=== PATIENT | female | born 1985 | race Hispanic/Latino ===

== ENCOUNTER 2024-06-02 18:00 | Inpatient (IN) | payer MEDICAID, OTHER, SELFPAY ==
[2024-06-02] MEDS ORDERED: Ibuprofen 800 MG TAB PO PRN (18:41)
[2024-06-02] MEDS ORDERED: Methylergonovine 0.2 MG/ML VIAL IM PRN (18:41)
[2024-06-02] MEDS ORDERED: hydrALAZINE 20 MG/ML VIAL SLOW IVP PRN (18:41)
[2024-06-02] MEDS ORDERED: Acetaminophen 500 MG TAB PO PRN (18:41)
[2024-06-02] MEDS ORDERED: Tranexamic Acid 1,000 MG/10 ML VIAL IVP PRN (18:41)
[2024-06-02] MEDS ORDERED: Promethazine HCl 25 MG/ML VIAL IM PRN (18:41)
[2024-06-02] MEDS ORDERED: Lidocaine 1% (PF) 30 ML VIAL SC PRN (18:41)
[2024-06-02] MEDS ORDERED: Docusate 100 MG CAP PO PRN (18:41)
[2024-06-02] MEDS ORDERED: Misoprostol 200 MCG TAB PR PRN (18:41)
[2024-06-02] MEDS ORDERED: Carboprost 250 MCG/ML AMP IM PRN (18:41)
[2024-06-02] MEDS: Lactated Ringer's 1,000 ML IV SCH (19:20)
[2024-06-02 19:32] LABS: Hematocrit 35.1 % (34.9-44.5); Hemoglobin 12.6 g/dL (12.0-15.5); Mean Corpuscular HGB CONC 35.9 g/dL (32.0-36.0); Mean Corpuscular Hemoglobin 35.6 pg (27.0-33.0); Mean Corpuscular Volume 99.2 fL (81.6-98.3); Mean Platelet Volume 11.8 fL (7.4-10.4); Platelet Count 169 10x3/uL (150-450); RBC Distribution Width 12.7 % (11.5-14.5); Red Blood Cell (RBC) Count 3.54 10x6/uL (3.90-5.03)
[2024-06-02 19:44] VITALS: BMI 31.1
[2024-06-02 20:29] LABS: HBsAg Index 0.15 S/CO (0-0.99); Hep B Surf Ag - L&D Non-Reactive S/CO (NonReactive)
[2024-06-02 20:33] LABS: Syphilis Antibody Nonreactive (Nonreactive); Syphilis Antibody Index 0.13 S/CO (<1.00 Non-Reactive)
[2024-06-02] MEDS: Misoprostol 100 MCG TAB VAG SCH (20:59)
[2024-06-02] MEDS ORDERED: Oxytocin 30 units/NS 500 ML 500 ML IV SCH (21:00)
[2024-06-03] MEDS: Penicillin G Potassium 5 MILL.UNITS in Sodium Chloride 0.9% 100 ML IVPB SCH (00:50)
[2024-06-03] MEDS ORDERED: Lidocaine 1% (PF) 30 ML VIAL SC PRN (01:08)
[2024-06-03] MEDS: Oxytocin 30 units/NS 500 ML 500 ML IV SCH (01:27)
[2024-06-03] MEDS: Penicillin G 2.5 MILL.units 2.5 MILL.UNITS in Premix 1 BAG IVPB SCH (05:06)
[2024-06-03] MEDS ORDERED: Lactated Ringer's 500 ML IV PRN (05:29)
[2024-06-03] MEDS ORDERED: ePHEDrine Sulfate 50 MG/10 ML VIAL SLOW IVP PRN (05:29)
[2024-06-03] MEDS ORDERED: Ondansetron PF 4 MG/2 ML Vial IVP PRN (05:29)
[2024-06-03] MEDS ORDERED: Promethazine HCl 25 MG/ML VIAL IM PRN (05:29)
[2024-06-03] MEDS ORDERED: Naloxone HCl 0.4 mg/ml Vial IVP PRN ×2 (05:29)
[2024-06-03] MEDS ORDERED: Moisturizing Cream (Eucerin) 113 GM JAR TOP PRN (05:29)
[2024-06-03] MEDS ORDERED: Acetaminophen 325 MG TAB PO PRN (05:29)
[2024-06-03] MEDS ORDERED: diphenhydrAMINE 50 MG/ML VIAL IVP PRN (05:29)
[2024-06-03] MEDS ORDERED: fentaNYL 2 mcg/Ropivacaine 0.2% Epidural 100 ML CADD EPIDURAL SCH (05:30)
[2024-06-03] MEDS ORDERED: Communication Order-Pharmacy FS SCH (05:30)
[2024-06-03] MEDS: Prenatal Vitamin 1 TAB PO SCH (07:13)
[2024-06-03] MEDS: Levothyroxine Sodium 88 MCG TAB PO SCH (07:13)
[2024-06-03] MEDS: fentaNYL/Ropivacaine Epidural 100 ML ONE (07:13)
[2024-06-03] MEDS: metFORMIN 500 MG TAB PO SCH (07:14)
[2024-06-03 13:33] LABS: HBSAB Concentration Less than 8.00 mIU/mL; Hep B Surf AB NONREACTIVE (NonReactive)
[2024-06-03] MEDS: Ondansetron PF 4 MG/2 ML Vial IVP PRN (14:02)
[2024-06-03] MEDS ORDERED: hydrALAZINE 20 MG/ML VIAL SLOW IVP PRN (16:25)
[2024-06-03] MEDS ORDERED: Milk Of Magnesia 30 ML UDCUP PO PRN (16:25)
[2024-06-03] MEDS ORDERED: Benzocaine-Menthol 82.5 ML CAN TOP PRN (16:25)
[2024-06-03] MEDS ORDERED: Boostrix 0.5 ML (Tdap) VIAL (>/=7 yrs of age) IM ONE (16:25)
[2024-06-03] MEDS ORDERED: Lanolin Ointment 7 GM TUBE TOP PRN (16:25)
[2024-06-03] MEDS ORDERED: Bisacodyl 10 MG SUPP PR PRN (16:25)
[2024-06-03] MEDS: Ferrous Sulfate 325 MG TAB PO SCH (20:31)
[2024-06-03] MEDS: Aspirin 81 mg Enteric Coated Tablet PO SCH (20:34)
[2024-06-03] MEDS: Docusate 100 MG CAP PO SCH (21:06)
[2024-06-03] MEDS: Ibuprofen 800 MG TAB PO SCH (21:06)
[2024-06-04] MEDS: Levothyroxine Sodium 88 MCG TAB PO SCH (05:27)
[2024-06-04] MEDS: Polyethylene Glycol 3350 17 GM Packet PO SCH (08:32)
[2024-06-04] MEDS: metFORMIN 500 MG TAB PO SCH (08:32)
[2024-06-04] MEDS: Prenatal Vitamin 1 TAB PO SCH (10:12)
[2024-06-04] MEDS: Preparation H Ointment 28 GM TUBE PR PRN (15:37)
[2024-06-05] MEDS ORDERED: Levothyroxine Sodium 50 MCG TAB PO SCH (06:00)
[2024-06-05] MEDS: Levothyroxine Sodium 88 MCG TAB PO SCH (06:20)
[2024-06-05 07:41] VITALS: BP 129/77; TEMP 97.7
[2024-06-05] MEDS: Prenatal Vitamin 1 TAB PO SCH (08:47)
[2024-06-06] MEDS ORDERED: Levothyroxine Sodium 88 MCG TAB PO SCH (06:00)
== END 2024-06-05 14:00 | disposition home or self-care (01) | DRG 806 ==
LOC: CSHLD 18:22 → CSHPP 06-03 18:45
PROVIDERS: ADMIT Family Medicine; ATTEND Family Medicine
PROC: 10D07Z6 Extraction of Products of Conception, Vacuum, Via Natural or Artificial Opening (ICD-10-PCS; principal; 2024-06-03)
PROC: 0UQGXZZ Repair Vagina, External Approach (ICD-10-PCS; 2024-06-03)
DX: O24.425 Gestational diabetes mellitus in childbirth, controlled by oral hypoglycemic drugs (principal); O71.4 Obstetric high vaginal laceration alone; Z37.0 Single live birth; O99.824 Streptococcus B carrier state complicating childbirth; O12.14 Gestational proteinuria, complicating childbirth; Z3A.39 39 weeks gestation of pregnancy; O99.284 Endocrine, nutritional and metabolic diseases complicating childbirth; E03.9 Hypothyroidism, unspecified; Z79.899 Other long term (current) drug therapy; Z79.82 Long term (current) use of aspirin; O76 Abnormality in fetal heart rate and rhythm complicating labor and delivery; E28.2 Polycystic ovarian syndrome; K64.4 Residual hemorrhoidal skin tags; O99.62 Diseases of the digestive system complicating childbirth
CPT/HCPCS: 36415; 36416; 51702; 82951; 85027; 86706; 86762; 86780; 86850; 86900; 86901; 87340; J2405; J2540; J2590; J7120